=== PATIENT | female | born 1930 | race African-American/Black ===

== ENCOUNTER 2016-10-29 12:55 | Inpatient (IN) | payer MEDICARE, OTHER ==
--- NOTE | ~2016-10-29 | HP ---
History And Physical [place] [address] [facility] [place]. [address] NAME: KAYDEN MOSES : 32 STATUS : ADM IN [facility]#: [id number] AGE: 86 ADM/REG DATE : 10/29/16 MR#: [id number] REPORT SERV DATE: 10/29/16 DICTATED BY: DAMASO HOLLEY DATE: 10/29/16 REPORT STATUS : Draft TRANSCRIBED BY: MODGallito DATE: 10/29/16 DATE OF ADMISSION: 10/29/2016 REASON FOR ADMISSION: Shortness of breath. Sees Dr. Farrell for Cardiology needs. HOSPITAL COURSE: This is an 86-year-old female. She suffers from ischemic cardiomyopathy, last LVEF thought to be 40%. Has had a PCI in the past, 2005. Known history of type 2 insulin-dependent diabetes, gastritis, GI bleed, hypertension, gallstone pancreatitis, gout; surgical history of left nephrectomy, left knee arthroplasty, cholecystectomy, and hysterectomy. The patient comes in with increasing shortness of breath and lower extremity swelling. Took an extra Lasix last Wednesday. Past several day course of worsened symptoms. No PND, but positive orthopnea. Has a hiatal hernia, usually cannot lay flat. The patient denies any fevers or chills. No nausea, no vomiting, no diarrhea, no chest pain, no chest pressure, no chest heaviness. Positive shortness of breath. Nonproductive cough positivity. Comes in with bilateral alveolar infiltration on chest x-ray, possible pleural effusion on the left, costophrenic. REVIEW OF SYSTEMS: Done, see HPI, otherwise negative. PAST MEDICAL HISTORY: Paroxysmal atrial fibrillation, on sotalol. Does not appear to have any anticoagulation. The patient is on chronic home O2, unclear etiology. PAST SURGICAL HISTORY: See above. ALLERGIES: APPARENTLY SULFA, BUT YET SHE TAKES LASIX AT HOME, WHICH HAS SULFA COMPONENT; CODEINE. FAMILY HISTORY: Hypertension in at least one parent. SOCIAL HISTORY: Does not drink, do drugs, or do alcohol. Was around secondhand positive smoke exposure in the past. HOME MEDICATIONS: See MAR. Continue what is relevant. OBJECTIVE: VITAL SIGNS: Currently 173/97, 97.9 temp, 75 pulse, 18 respirations, 95% on 2 L. GENERAL: No acute distress. HEENT: PERRLA. No scleral icterus. CARDIOVASCULAR: Regular rate and rhythm, 1/6 systolic aortic murmur. History And Physical [address] [address] NAME: KAYDEN MOSES : 31 STATUS : ADM IN PAT#: [id number] AGE: 86 ADM/REG DATE : 10/29/16 MR#: [id number] REPORT SERV DATE: 10/29/16 DICTATED BY: DAMASO HOLLEY DATE: 10/29/16 REPORT STATUS : Draft TRANSCRIBED BY: CANDY DATE: 10/29/16 RESPIRATORY: Bibasilar crackles. Decreased breath sounds bibasilarly. ABDOMEN: Obese, nontender, nondistended. Positive bowel sounds. EXTREMITIES: 1+ pitting edema bilaterally. NEURO: A and O x4/4. GCS of 15. PSYCH: Mildly anxious. LABORATORY DATA: White count 6.1, hemoglobin 10.7, 219,000 platelets, 3.8 potassium, 24 bicarb, 0.99 creatinine, 23 BUN, 163 sugar, BNP 873, troponin 0.03. INR 1.3. Chest x-ray, see above. EKG has atrial fibrillation, PVCs noted. T-wave inversion aVL, AV, and lead 1. Needs a prior EKG to elucidate if it is persistent. We will get a repeat as a result and trend cardiac enzymes. Could be heart failure with hypoxic demand-related ischemia. This is new. ASSESSMENT AND PLAN: 1. Acute decompensated heart failure with ischemic cardiomyopathy, last LVEF thought to have been 40%. 2. Solitary kidney history. 3. Atrial fibrillation. 4. Debility. PLAN: We will go ahead and admit this patient to Dr. Garcia's service -[place]. We will go ahead and place on IV Bumex. Diuresis. Bilateral lower extremity ultrasound. Get a procal. Trend cardiac enzymes, specifically with MB fraction. Will need to be checked for prior EKG for possible persistence of lateral T-wave inversions. Placed on hydralazine p.r.n. 2 g sodium restricted diet, 1.5 L fluid restriction. Echo. If it is intractable, conservative management. Consider possible Cardiology consultation. All questions were answered. Took well over 60 minutes to do. Reference [employer] and CytRx. WST/MODL Damaso Holley DO / [id number] CC: Niki Randolph N.P.
--- NOTE | ~2016-10-29 | DS ---
Discharge Summary [facility] [address] [place]. [address] NAME: KAYDEN MOSES : 31 STATUS : DIS IN PAT#: [id number] AGE: 86 ADM/REG DATE : 10/29/16 MR#: [id number] REPORT SERV DATE: 11/05/16 DICTATED BY: PRO DAVIDSON DATE: 11/04/16 REPORT STATUS : Draft TRANSCRIBED BY: MODGallito DATE: 11/04/16 ADMISSION DATE: 10/29/2016 DISCHARGE DATE: 11/03/2016 DISCHARGE DIAGNOSES: Include: 1. Acute on chronic systolic heart failure with most recent ejection fraction of 60%, left ventricular hypertrophy. 2. Chronic atrial fibrillation, rate controlled only. No anticoagulation. 3. Bilateral pleural effusions. Chronic home O2 use 2 L. 4. Chronic kidney disease, stage III. Most recent creatinine 1.33. 5. Hypertension. 6. Diabetes type 2, most recent hemoglobin A1c 7.1. 7. History of a solitary right kidney. DISCHARGE MEDICATIONS: As follows: Allopurinol 100 mg at bedtime resuming 11/05/2016; aspirin 81 mg daily; Plavix 75 mg daily; vitamin D 4000 units p.o. Wednesday and Wednesday; Ferrex 150 mg p.o. at bedtime; Insulin Levemir 12 units at bedtime; multivitamin 1 tablet daily; Procardia XL 90 mg daily; Altace 2.5 mg daily; simvastatin 40 mg at bedtime; Betapace 80 mg twice a day; clonidine 0.2 mg twice a day; hydralazine 25 mg three times a day; Imdur 30 mg daily; Lasix 20 mg daily starting on 11/05/2016; Tylenol 1000 mg twice a day p.r.n.; Colace 100 mg daily p.r.n. for constipation. HISTORY OF PRESENT ILLNESS: An 86-year-old, female, known to the Hospitalist Service presented with shortness of breath. Please see the initial H and P of Dr. Haja Esparza as patient was admitted to the Hospitalist Service for further evaluation and treatment. Please also see the interim discharge summary of Jaylene Tenorio, nurse practitioner. CONTINUATION OF HOSPITAL COURSE: The patient of course was given aggressive diuresis during this admission and that made improvement both in her weight and symptoms. She was seen by the Heart failure Education Team. She underwent an echocardiogram. It did show an ejection fraction 60%, left ventricular hypertrophy, and some mild mitral insufficiency. She is able to transition back off her IV diuretics. She already has Home Health, Physical Therapy in place, and we will resume this through [facility] at discharge. She was felt safe for discharge home on 11/03/2016, lives with a daughter and has cane walker and bedside commode in the home. She has followups planned with her primary care in seven days and also Cardiology followup in two to three weeks on a 1500 mL fluid restriction, 24 hours, daily weights and low-sodium diet. Discussed at length with the patient at bedside. She is in agreement with this plan going forward. She will also be rechecking the BMP through primary care office at that followup. Please note greater 30 minutes spent on this discharge for medication teaching, followup planning, and further disposition. Discharge Summary [place] [id number] [facility] [place]. [address] NAME: KAYDEN MOSES : 32 STATUS : DIS IN PAT#: [id number] AGE: 86 ADM/REG DATE : 10/29/16 MR#: [id number] REPORT SERV DATE: 11/05/16 DICTATED BY: PRO DAVIDSON DATE: 11/04/16 REPORT STATUS : Draft TRANSCRIBED BY: CANDY DATE: 11/04/16 LORENZO/CANDY Pro Davidson NP / [id number] CC: Niki Ponce NZoila
--- NOTE | ~2016-10-29 | IDS ---
Interim Discharge Summary [facility] [address] [place]. [address] NAME: KAYDEN MOSES : 32 STATUS : ADM IN PAT#: [id number] AGE: 86 ADM/REG DATE : 10/29/16 MR#: [id number] REPORT SERV DATE: 11/02/16 DICTATED BY: DATE: REPORT STATUS : Draft TRANSCRIBED BY: MODL DATE: 11/02/16 ADMISSION DATE: 10/29/2016 DISCHARGE DATE: DIAGNOSES: Current interim discharge diagnosis list includes: 1. Acute on chronic congestive heart failure. 2. Hypertension. 3. Diabetes mellitus type 2. 4. Gout. 5. Chronic atrial fibrillation. 6. Anemia. 7. History of coronary artery disease. 8. History of cerebrovascular accident. 9. History of gastrointestinal bleed. 10.Bilateral pleural effusions. 11.Solitary kidney. HISTORY OF PRESENT ILLNESS: This is an 86-year-old, black female, who suffers from ischemic cardiomyopathy with her last ejection fraction of approximately 40%. The patient has had history of PCI in 2005. Please see H and P dictated on 10/29/2016 by Haja Esparza. Next, during this admission, the patient has continued to be in chronic atrial fibrillation. The patient is on home O2 at 2 L. PROCEDURES AND IMAGING: Initial chest x-ray on showed venous congestion with interstitial prominence in the lungs concerning for edema, as well as bibasilar atelectasis with probably small bilateral fluid. On 10/30/2016, the patient had bilateral venous Doppler on lower extremities that showed no DVT. Chest x-ray on showed upper lung hubbard clearing of congestive failure with marked cardiomegaly and a large bilateral pleural effusions. Next chest x-ray was on 11/02/2016, which showed [id number] bilateral pleural effusions, decreased since prior examination. Stable cardiac silhouette. The patient has been having slow diuresis only outputs between 400 to 600 mL with IV Bumex b.i.d. We have added Zaroxolyn today to give her an extra bump to see if she will be ready for discharge tomorrow. We are also getting a home PT evaluation to see if the patient would benefit from any possible therapy upon discharge. The patient does use cane to ambulate at home. The patient has been seen by the heart failure team and will also be having home health follow her for her heart failure. Due to her diuresis, we have had some problems with hypokalemia which is being replaced by electrolyte protocol, and currently is on scheduled potassium. Upon discharge, her diuretics will need to be readdressed and will probably need to have scheduled potassium discontinued. CURRENT LABORATORY DATA: BNP of 404 and on admission they were 873.2. Sodium is 143, potassium is 4.4, chloride is 104, BUN is 28, creatinine is 1.23, GFR is 46, glucose is 60, calcium is 8.3, Mag is 2.0, and phosphorus is 3.9. We have ordered BMP and Mag in the morning. The patient's Rubi has been discontinued. Interim Discharge Summary [address] [address] NAME: KAYDEN MOSES : 31 STATUS : ADM IN [facility]#: [id number] AGE: 86 ADM/REG DATE : 10/29/16 MR#: [id number] REPORT SERV DATE: 11/02/16 DICTATED BY: DATE: REPORT STATUS : Draft TRANSCRIBED BY: MODL DATE: 11/02/16 SLC/MODL Jaylene Tenorio NP / [id number] CC: MD Noemy Dela Cruz N.P.
[~2016-10-29 12:55] MED LIST: ACET500CAP PO; ADALAT CC90 MG PO; ALTA2.5 PO; AMARYL1 MG PO; APRES25 PO; ASA5GR PO; ASAEC PO; BETAPACE80 PO; CAT2 PO; CEFT5 PO; CENTRUM PO; CENTRUM TAB1 TAB PO; COZAAR100 MG PO; DIOV160 PO; DIOVAN320 MG PO; DRONED400 PO; DSS PO; EZFE 200200 MG PO; FERREX 150150 MG PO; HALF81 PO; IMDUR30 PO; L20 PO; L40 PO; LEVAQUIN750 MG PO; LEVEMFLXPN SC; LEVEMIR SC; LOP25 PO; LOP50 PO; MONOPRIL40 MG PO; MULTIPLE VIT PO; MULTIVITAMI1 PO; NATURA2 OP; NXL9 PO; PLAVIX PO; POLY IRON150 MG PO; SPIRO25 PO; VITAMIN D1000 UNI1 PO; VITAMIN D31000 UNIT PO; Z100 PO; ZOCOR40 PO
[2016-10-29 16:43] LABS: BASOPHILS 0.2 %; BASOPHILS ABSOLUTE 0.01 10/3/uL (0.0-0.16); EOSINOPHILS 0.5 %; EOSINOPHILS ABSOLUTE 0.03 10/3/uL (0.0-0.53); HEMOGLOBIN 10.7 g/dL (12.0-16.0); IMMATURE GRANULOCYTES 0.3 %; IMMATURE GRANULOCYTES ABSOLUTE 0.02 10/3/uL (0.0-0.11); LYMPHOCYTES 19.7 %; MEAN CORPUS HGB CONC 33.1 g/dL (32.0-36.0); MEAN CORPUSCULAR HEMOGLOB 30.4 pg (26.0-34.0); MEAN PLATELET VOLUME 9.8 fL (9.2-13.0); MONOCYTES 5.6 %; MONOCYTES ABSOLUTE 0.34 10/3/uL (0.21-1.20); NEUTROPHILS 73.7 %; PLATELET COUNT 219 10/3/uL (150-400); RBC DISTRIBUTION WIDTH 16.2 % (12.0-16.0); RED CELL COUNT 3.52 10/6/uL (4.0-5.6); WHITE BLOOD CELLS 6.1 10/3/uL (4.5-10.5)
[2016-10-29 16:44] LABS: HEMATOCRIT 32.3 % (36.0-48.0); MANUAL DIFF NO %; MEAN CORPUSCULAR VOLUME 91.8 fL (80-100)
[2016-10-29 16:50] LABS: INTERNATIONAL NORMAL RATI 1.3 UNITS (-); PARTIAL THROMBO TIME 28.7 SEC (22.5-37.2)
[2016-10-29 17:06] LABS: A/G RATIO 0.8 (0.7-1.9); ALBUMIN 2.9 G/DL (3.5-5.0); BUN (BLOOD UREA NITROGEN) 23 MG/DL (6-23); CALCIUM, SERUM 8.5 MG/DL (8.5-10.4); CHLORIDE, SERUM 110 MMOL/L (96-112); CO2 (CARBON DIOXIDE) 24 MMOL/L (24-34); CREATININE 0.99 MG/DL (0.55-1.02); GFR AFRICAN AMERICAN 60 ML/MIN (>=60); GFR NON AFRICAN AMERICAN 52 ML/MIN (>=60); GLOBULIN 3.5 G/DL (2.5-4.1); GLUCOSE, SERUM 163 MG/DL (60-99); POTASSIUM, SERUM 3.8 MMOL/L (3.5-5.3); SGOT(AST) 24 U/L (5-40); SGPT(ALT) 39 U/L (5-65); SODIUM, SERUM 143 MMOL/L (135-148); TOTAL BILIRUBIN 0.4 MG/DL (0-1.2); TOTAL PROTEIN 6.4 G/DL (6.0-8.5); TROPONIN I 0.03 NG/ML (<0.05)
[2016-10-29 17:07] LABS: ALKALINE PHOSPHATASE 109 U/L (45-117)
[2016-10-29 17:08] LABS: B NATRIURETIC PEPTIDE (BNP) 873.2 PG/ML (< 100.0)
[2016-10-29] MEDS ORDERED: ZOCOR40 PO (17:25)
[2016-10-29] MEDS ORDERED: ASAB PO (17:26)
[2016-10-29] MEDS ORDERED: MULTIVIT/MIN PO (17:26)
[2016-10-29] MEDS ORDERED: IMDUR30 PO (17:27)
[2016-10-29] MEDS ORDERED: VITAMIN D31000 UNIT PO (17:27)
[2016-10-29] MEDS ORDERED: APRES25 PO (17:27)
[2016-10-29] MEDS ORDERED: PLAVIX PO (17:29)
[2016-10-29] MEDS ORDERED: ALTA2.5 PO (17:29)
[2016-10-29] MEDS ORDERED: L20 PO (17:29)
[2016-10-29] MEDS ORDERED: CAT2 PO (17:29)
[2016-10-29] MEDS ORDERED: BETAPACE80 PO (17:30)
[2016-10-29] MEDS ORDERED: Z100 PO (17:30)
[2016-10-29] MEDS ORDERED: FERREX 150150 MG PO (17:31)
[2016-10-29] MEDS ORDERED: ACET500CAP PO (17:32)
[2016-10-29] MEDS ORDERED: DSS PO (17:33)
[2016-10-29] MEDS ORDERED: LEVEMFLXPN SC (17:33)
[2016-10-29 21:23] LABS: CPK 43 U/L (0-200); PHOSPHORUS, SERUM 3.2 MG/DL (2.5-4.5)
[2016-10-29 21:24] LABS: CK-MB 0.9 NG/ML
[2016-10-29 21:46] LABS: PROCALCITONIN 0.06 ng/mL (<0.5)
[2016-10-29 21:54] LABS: GLYCOHEMOGLOBIN (HbA1c) 7.1 % (4.7-6.1)
[2016-10-29 23:32] LABS: CK-MB 1.1 NG/ML; CPK 48 U/L (0-200); TROPONIN I 0.03 NG/ML (<0.05)
[2016-10-30 06:40] LABS: BASOPHILS 0.2 %; BASOPHILS ABSOLUTE 0.02 10/3/uL (0.0-0.16); EOSINOPHILS 0.7 %; EOSINOPHILS ABSOLUTE 0.06 10/3/uL (0.0-0.53); HEMATOCRIT 33.8 % (36.0-48.0); IMMATURE GRANULOCYTES 0.1 %; IMMATURE GRANULOCYTES ABSOLUTE 0.01 10/3/uL (0.0-0.11); LYMPHOCYTES ABSOLUTE 1.28 10/3/uL (0.67-4.30); MEAN CORPUS HGB CONC 32.5 g/dL (32.0-36.0); MEAN CORPUSCULAR HEMOGLOB 29.6 pg (26.0-34.0); MEAN CORPUSCULAR VOLUME 91.1 fL (80-100); MEAN PLATELET VOLUME 10.4 fL (9.2-13.0); MONOCYTES 6.5 %; MONOCYTES ABSOLUTE 0.52 10/3/uL (0.21-1.20); NEUTROPHILS 76.5 %; NEUTROPHILS ABSOLUTE 6.13 10/3/uL (2.02-8.40); PLATELET COUNT 249 10/3/uL (150-400); RBC DISTRIBUTION WIDTH 16.3 % (12.0-16.0); RED CELL COUNT 3.71 10/6/uL (4.0-5.6)
[2016-10-30 06:46] LABS: MANUAL DIFF NO %
[2016-10-30 06:47] LABS: BUN (BLOOD UREA NITROGEN) 21 MG/DL (6-23); CALCIUM, SERUM 8.7 MG/DL (8.5-10.4); CHLORIDE, SERUM 111 MMOL/L (96-112); CO2 (CARBON DIOXIDE) 25 MMOL/L (24-34); CREATININE 0.93 MG/DL (0.55-1.02); GFR AFRICAN AMERICAN 65 ML/MIN (>=60); GFR NON AFRICAN AMERICAN 56 ML/MIN (>=60); PHOSPHORUS, SERUM 3.2 MG/DL (2.5-4.5); POTASSIUM, SERUM 3.5 MMOL/L (3.5-5.3); SODIUM, SERUM 146 MMOL/L (135-148)
[2016-10-30 06:49] LABS: GLUCOSE, SERUM 96 MG/DL (60-99)
[2016-10-31 06:39] LABS: BUN (BLOOD UREA NITROGEN) 21 MG/DL (6-23); CALCIUM, SERUM 8.4 MG/DL (8.5-10.4); CHLORIDE, SERUM 108 MMOL/L (96-112); CO2 (CARBON DIOXIDE) 27 MMOL/L (24-34); GFR AFRICAN AMERICAN 59 ML/MIN (>=60); GFR NON AFRICAN AMERICAN 51 ML/MIN (>=60); GLUCOSE, SERUM 77 MG/DL (60-99); PHOSPHORUS, SERUM 2.7 MG/DL (2.5-4.5); POTASSIUM, SERUM 3.5 MMOL/L (3.5-5.3); SODIUM, SERUM 145 MMOL/L (135-148)
[2016-10-31 06:51] LABS: BASOPHILS 0.2 %; BASOPHILS ABSOLUTE 0.02 10/3/uL (0.0-0.16); EOSINOPHILS 0.7 %; EOSINOPHILS ABSOLUTE 0.06 10/3/uL (0.0-0.53); HEMATOCRIT 34.2 % (36.0-48.0); HEMOGLOBIN 11.1 g/dL (12.0-16.0); IMMATURE GRANULOCYTES 0.1 %; IMMATURE GRANULOCYTES ABSOLUTE 0.01 10/3/uL (0.0-0.11); LYMPHOCYTES 16.5 %; LYMPHOCYTES ABSOLUTE 1.34 10/3/uL (0.67-4.30); MEAN CORPUS HGB CONC 32.5 g/dL (32.0-36.0); MEAN CORPUSCULAR HEMOGLOB 29.4 pg (26.0-34.0); MEAN CORPUSCULAR VOLUME 90.5 fL (80-100); MEAN PLATELET VOLUME 10.7 fL (9.2-13.0); MONOCYTES 7.3 %; MONOCYTES ABSOLUTE 0.59 10/3/uL (0.21-1.20); NEUTROPHILS 75.2 %; NEUTROPHILS ABSOLUTE 6.08 10/3/uL (2.02-8.40); PLATELET COUNT 252 10/3/uL (150-400); RBC DISTRIBUTION WIDTH 16.5 % (12.0-16.0); RED CELL COUNT 3.78 10/6/uL (4.0-5.6); WHITE BLOOD CELLS 8.1 10/3/uL (4.5-10.5)
[2016-10-31 06:52] LABS: MANUAL DIFF NO %
[2016-11-01 06:22] LABS: BASOPHILS 0.3 %; BASOPHILS ABSOLUTE 0.02 10/3/uL (0.0-0.16); EOSINOPHILS 1.3 %; HEMATOCRIT 35.3 % (36.0-48.0); HEMOGLOBIN 11.4 g/dL (12.0-16.0); IMMATURE GRANULOCYTES 0.1 %; IMMATURE GRANULOCYTES ABSOLUTE 0.01 10/3/uL (0.0-0.11); LYMPHOCYTES 17.2 %; MEAN CORPUS HGB CONC 32.3 g/dL (32.0-36.0); MEAN CORPUSCULAR HEMOGLOB 29.4 pg (26.0-34.0); MEAN PLATELET VOLUME 10.8 fL (9.2-13.0); MONOCYTES 9.2 %; NEUTROPHILS 71.9 %; NEUTROPHILS ABSOLUTE 5.45 10/3/uL (2.02-8.40); PLATELET COUNT 267 10/3/uL (150-400); RBC DISTRIBUTION WIDTH 16.4 % (12.0-16.0); RED CELL COUNT 3.88 10/6/uL (4.0-5.6); WHITE BLOOD CELLS 7.6 10/3/uL (4.5-10.5)
[2016-11-01 06:23] LABS: MANUAL DIFF NO %
[2016-11-01 06:35] LABS: BUN (BLOOD UREA NITROGEN) 21 MG/DL (6-23); CALCIUM, SERUM 8.5 MG/DL (8.5-10.4); CHLORIDE, SERUM 105 MMOL/L (96-112); CO2 (CARBON DIOXIDE) 29 MMOL/L (24-34); CREATININE 1.01 MG/DL (0.55-1.02); GFR AFRICAN AMERICAN 59 ML/MIN (>=60); GFR NON AFRICAN AMERICAN 51 ML/MIN (>=60); GLUCOSE, SERUM 70 MG/DL (60-99); POTASSIUM, SERUM 3.5 MMOL/L (3.5-5.3); SODIUM, SERUM 144 MMOL/L (135-148)
[2016-11-01 08:08] LABS: ASCORBIC ACID (UR NOT ORDER) NEG (NEG); BILIRUBIN, URINE NEGATIVE (NEG); KETONE, URINE NEGATIVE (NEG); LEUKOCYTE ESTERASE(NOT OR TRACE (NEG); WBC (NOT ORDERED) (RFLEX) 3 (0-5)
[2016-11-02 07:02] LABS: BASOPHILS 0.3 %; BASOPHILS ABSOLUTE 0.02 10/3/uL (0.0-0.16); EOSINOPHILS 2.7 %; HEMATOCRIT 33.5 % (36.0-48.0); HEMOGLOBIN 10.8 g/dL (12.0-16.0); IMMATURE GRANULOCYTES 0.1 %; IMMATURE GRANULOCYTES ABSOLUTE 0.01 10/3/uL (0.0-0.11); LYMPHOCYTES 23.1 %; LYMPHOCYTES ABSOLUTE 1.71 10/3/uL (0.67-4.30); MEAN CORPUS HGB CONC 32.2 g/dL (32.0-36.0); MEAN CORPUSCULAR HEMOGLOB 29.7 pg (26.0-34.0); MEAN PLATELET VOLUME 10.5 fL (9.2-13.0); MONOCYTES 8.1 %; NEUTROPHILS 65.7 %; NEUTROPHILS ABSOLUTE 4.87 10/3/uL (2.02-8.40); PLATELET COUNT 243 10/3/uL (150-400); RBC DISTRIBUTION WIDTH 16.2 % (12.0-16.0); RED CELL COUNT 3.64 10/6/uL (4.0-5.6); WHITE BLOOD CELLS 7.4 10/3/uL (4.5-10.5)
[2016-11-02 07:03] LABS: MANUAL DIFF NO %
[2016-11-02 07:07] LABS: BUN (BLOOD UREA NITROGEN) 28 MG/DL (6-23); CALCIUM, SERUM 8.3 MG/DL (8.5-10.4); CHLORIDE, SERUM 104 MMOL/L (96-112); CO2 (CARBON DIOXIDE) 29 MMOL/L (24-34); CREATININE 1.23 MG/DL (0.55-1.02); GFR AFRICAN AMERICAN 46 ML/MIN (>=60); GFR NON AFRICAN AMERICAN 40 ML/MIN (>=60); GLUCOSE, SERUM 60 MG/DL (60-99); PHOSPHORUS, SERUM 3.9 MG/DL (2.5-4.5); POTASSIUM, SERUM 4.4 MMOL/L (3.5-5.3); SODIUM, SERUM 143 MMOL/L (135-148)
[2016-11-03 05:11] LABS: BASOPHILS 0.3 %; BASOPHILS ABSOLUTE 0.02 10/3/uL (0.0-0.16); EOSINOPHILS 3.5 %; EOSINOPHILS ABSOLUTE 0.21 10/3/uL (0.0-0.53); IMMATURE GRANULOCYTES 0.2 %; IMMATURE GRANULOCYTES ABSOLUTE 0.01 10/3/uL (0.0-0.11); LYMPHOCYTES 27.9 %; LYMPHOCYTES ABSOLUTE 1.68 10/3/uL (0.67-4.30); MANUAL DIFF NO %; MEAN CORPUS HGB CONC 32.4 g/dL (32.0-36.0); MEAN CORPUSCULAR HEMOGLOB 29.8 pg (26.0-34.0); MEAN CORPUSCULAR VOLUME 92.1 fL (80-100); MEAN PLATELET VOLUME 10.3 fL (9.2-13.0); MONOCYTES 8.1 %; MONOCYTES ABSOLUTE 0.49 10/3/uL (0.21-1.20); NEUTROPHILS ABSOLUTE 3.62 10/3/uL (2.02-8.40); PLATELET COUNT 244 10/3/uL (150-400); RBC DISTRIBUTION WIDTH 15.8 % (12.0-16.0); RED CELL COUNT 3.69 10/6/uL (4.0-5.6)
[2016-11-03 05:24] LABS: CALCIUM, SERUM 8.8 MG/DL (8.5-10.4); CHLORIDE, SERUM 103 MMOL/L (96-112); CO2 (CARBON DIOXIDE) 29 MMOL/L (24-34); CREATININE 1.33 MG/DL (0.55-1.02); GFR AFRICAN AMERICAN 42 ML/MIN (>=60); GFR NON AFRICAN AMERICAN 36 ML/MIN (>=60); PHOSPHORUS, SERUM 4.6 MG/DL (2.5-4.5); POTASSIUM, SERUM 4.8 MMOL/L (3.5-5.3); SODIUM, SERUM 141 MMOL/L (135-148)
[2016-11-03 05:25] LABS: BUN (BLOOD UREA NITROGEN) 34 MG/DL (6-23); GLUCOSE, SERUM 91 MG/DL (60-99)
[2017-03-01] MEDS ORDERED: IMDUR30 PO (20:11)
[2017-03-01] MEDS ORDERED: PLAVIX PO (20:11)
[2017-03-01] MEDS ORDERED: ZOCOR40 PO (20:12)
[2017-03-01] MEDS ORDERED: CAT2 PO (20:12)
[2017-03-01] MEDS ORDERED: ALTA2.5 PO (20:12)
[2017-03-01] MEDS ORDERED: ELIQUIS 5 MG TAB5 MG PO (20:13)
[2017-03-01] MEDS ORDERED: L20 PO (20:13)
[2017-03-01] MEDS ORDERED: APRES25 PO (20:14)
[2017-03-01] MEDS ORDERED: BETAPACE80 PO (20:14)
[2017-03-01] MEDS ORDERED: NXL9 PO (20:14)
[2017-03-01] MEDS ORDERED: CENTRUM PO (20:15)
[2017-03-01] MEDS ORDERED: VITAMIN D31000 UNIT PO (20:15)
[2017-03-01] MEDS ORDERED: KLOR-CON 1010 MEQ PO (20:16)
[2017-03-01] MEDS ORDERED: Z100 PO (20:16)
[2017-03-01] MEDS ORDERED: Z5 PO (20:16)
[2017-03-01] MEDS ORDERED: FERREX 150150 MG PO (20:17)
[2017-03-01] MEDS ORDERED: ASAB PO (20:17)
[2017-03-01] MEDS ORDERED: LEVEMFLXPN SC (20:18)
[2017-03-01] MEDS ORDERED: DSS PO (20:19)
[2017-03-01] MEDS ORDERED: ACET500CAP PO (20:19)
[2017-03-07] MEDS ORDERED: PROTONIX PO (12:44)
[2017-04-23] MEDS ORDERED: ACET500CAP PO (00:29)
[2017-04-23] MEDS ORDERED: Z5 PO (00:29)
[2017-04-23] MEDS ORDERED: IMDUR30 PO (00:29)
[2017-04-23] MEDS ORDERED: L20 PO (00:30)
[2017-04-23] MEDS ORDERED: BETAPACE80 PO (00:30)
[2017-04-23] MEDS ORDERED: CAT1 PO (00:30)
[2017-04-23] MEDS ORDERED: Z100 PO (00:30)
[2017-04-23] MEDS ORDERED: FERREX 150150 MG PO (00:31)
[2017-04-23] MEDS ORDERED: ELIQUIS 5 MG TAB5 MG PO (00:31)
[2017-04-23] MEDS ORDERED: PROTONIX PO (00:32)
[2017-04-23] MEDS ORDERED: CENTRUM PO (00:32)
[2017-04-23] MEDS ORDERED: VITAMIN D31000 UNIT PO (00:32)
[2017-04-23] MEDS ORDERED: NXL9 PO (00:32)
[2017-04-23] MEDS ORDERED: APRES25 PO (00:33)
[2017-04-23] MEDS ORDERED: ZOCOR40 PO (00:33)
[2017-04-23] MEDS ORDERED: LEVEMFLXPN SC (00:33)
[2017-04-23] MEDS ORDERED: DSS PO (00:34)
[2017-04-23] MEDS ORDERED: ASAB PO (00:35)
[2017-05-03] MEDS ORDERED: MAGOX4 PO (10:50)
[2017-05-03] MEDS ORDERED: NYS500UDL PO (10:52)
[2017-05-03] MEDS ORDERED: REM15 PO (10:53)
== END 2016-11-03 18:16 | disposition home health service (06) | DRG 291 ==
LOC: ER 12:55 → 6NO 19:43
PROVIDERS: Emergency Medicine; Hospitalist; Internal Medicine
DX: I13.0 Hypertensive heart and chronic kidney disease with heart failure and stage 1 through stage 4 chronic kidney disease, or unspecified chronic kidney disease (principal); I50.23 Acute on chronic systolic (congestive) heart failure; E11.22 Type 2 diabetes mellitus with diabetic chronic kidney disease; Z99.81 Dependence on supplemental oxygen; I48.2 Chronic atrial fibrillation; I25.5 Ischemic cardiomyopathy; N18.3 Chronic kidney disease, stage 3 (moderate); K59.00 Constipation, unspecified; E87.6 Hypokalemia; I34.0 Nonrheumatic mitral (valve) insufficiency; D64.9 Anemia, unspecified; M10.9 Gout, unspecified; Z86.73 Personal history of transient ischemic attack (TIA), and cerebral infarction without residual deficits; Z79.02 Long term (current) use of antithrombotics/antiplatelets; Z79.4 Long term (current) use of insulin; Z79.82 Long term (current) use of aspirin
CPT/HCPCS: 71010; 71020; 80048; 80053; 81001; 82550; 82553; 82962; 83036; 83735; 83880; 84100; 84145; 84443; 84484; 85025; 85610; 85730; 93005; 93306; 93970; 94640; 96374; 97110-GP; 97116-GP; 97161-GP; 99285; A9270-GY; G8978-CJ-GP; G8979-CI-GP; J0360; J1170; J1940; J2405

== ENCOUNTER 2017-02-07 11:36 | Emergency (ER) | payer MEDICARE, OTHER ==
[~2017-02-07 11:36] MED LIST changes: +ASAB PO; +MULTIVIT/MIN PO
[2017-02-07 16:07] LABS: BASOPHILS 0.3 %; BASOPHILS ABSOLUTE 0.02 10/3/uL (0.0-0.16); EOSINOPHILS 0.6 %; EOSINOPHILS ABSOLUTE 0.05 10/3/uL (0.0-0.53); ER CBC TAT 0 Hrs 05 Mins; HEMOGLOBIN 9.4 g/dL (12.0-16.0); IMMATURE GRANULOCYTES 0.1 %; IMMATURE GRANULOCYTES ABSOLUTE 0.01 10/3/uL (0.0-0.11); LYMPHOCYTES 17.9 %; LYMPHOCYTES ABSOLUTE 1.42 10/3/uL (0.67-4.30); MEAN CORPUS HGB CONC 31.8 g/dL (32.0-36.0); MEAN CORPUSCULAR HEMOGLOB 29.5 pg (26.0-34.0); MEAN CORPUSCULAR VOLUME 92.8 fL (80-100); MEAN PLATELET VOLUME 9.8 fL (9.2-13.0); MONOCYTES 5.3 %; MONOCYTES ABSOLUTE 0.42 10/3/uL (0.21-1.20); NEUTROPHILS 75.8 %; NEUTROPHILS ABSOLUTE 6.01 10/3/uL (2.02-8.40); PLATELET COUNT 283 10/3/uL (150-400); RBC DISTRIBUTION WIDTH 16.6 % (12.0-16.0); RED CELL COUNT 3.19 10/6/uL (4.0-5.6); WHITE BLOOD CELLS 7.9 10/3/uL (4.5-10.5)
[2017-02-07 16:09] LABS: HEMATOCRIT 29.6 % (36.0-48.0); MANUAL DIFF NO %
[2017-02-07 16:16] LABS: INTERNATIONAL NORMAL RATI 2.8 UNITS (-)
[2017-02-07 16:17] LABS: PROTIME (NOT ORD) 29.4 SEC (12.0-14.5)
[2017-02-07 16:24] LABS: CALCIUM, SERUM 8.7 MG/DL (8.5-10.4); CHEST PAIN PROFILE TAT 0 Hrs 22 Mins; CHLORIDE, SERUM 109 MMOL/L (96-112); GFR AFRICAN AMERICAN 53 ML/MIN (>=60); GFR NON AFRICAN AMERICAN 46 ML/MIN (>=60); SODIUM, SERUM 140 MMOL/L (135-148); TROPONIN I 0.03 NG/ML (<0.05)
[2017-02-07 16:25] LABS: BUN (BLOOD UREA NITROGEN) 28 MG/DL (6-23); CO2 (CARBON DIOXIDE) 24 MMOL/L (24-34); GLUCOSE, SERUM 228 MG/DL (60-99); POTASSIUM, SERUM 3.8 MMOL/L (3.5-5.3)
[2017-03-01] MEDS ORDERED: IMDUR30 PO (20:11)
[2017-03-01] MEDS ORDERED: PLAVIX PO (20:11)
[2017-03-01] MEDS ORDERED: ALTA2.5 PO (20:12)
[2017-03-01] MEDS ORDERED: ZOCOR40 PO (20:12)
[2017-03-01] MEDS ORDERED: CAT2 PO (20:12)
[2017-03-01] MEDS ORDERED: L20 PO (20:13)
[2017-03-01] MEDS ORDERED: ELIQUIS 5 MG TAB5 MG PO (20:13)
[2017-03-01] MEDS ORDERED: NXL9 PO (20:14)
[2017-03-01] MEDS ORDERED: APRES25 PO (20:14)
[2017-03-01] MEDS ORDERED: BETAPACE80 PO (20:14)
[2017-03-01] MEDS ORDERED: VITAMIN D31000 UNIT PO (20:15)
[2017-03-01] MEDS ORDERED: CENTRUM PO (20:15)
[2017-03-01] MEDS ORDERED: Z100 PO (20:16)
[2017-03-01] MEDS ORDERED: KLOR-CON 1010 MEQ PO (20:16)
[2017-03-01] MEDS ORDERED: Z5 PO (20:16)
[2017-03-01] MEDS ORDERED: FERREX 150150 MG PO (20:17)
[2017-03-01] MEDS ORDERED: ASAB PO (20:17)
[2017-03-01] MEDS ORDERED: LEVEMFLXPN SC (20:18)
[2017-03-01] MEDS ORDERED: DSS PO (20:19)
[2017-03-01] MEDS ORDERED: ACET500CAP PO (20:19)
[2017-03-07] MEDS ORDERED: PROTONIX PO (12:44)
[2017-04-23] MEDS ORDERED: ACET500CAP PO (00:29)
[2017-04-23] MEDS ORDERED: Z5 PO (00:29)
[2017-04-23] MEDS ORDERED: IMDUR30 PO (00:29)
[2017-04-23] MEDS ORDERED: L20 PO (00:30)
[2017-04-23] MEDS ORDERED: BETAPACE80 PO (00:30)
[2017-04-23] MEDS ORDERED: Z100 PO (00:30)
[2017-04-23] MEDS ORDERED: CAT1 PO (00:30)
[2017-04-23] MEDS ORDERED: FERREX 150150 MG PO (00:31)
[2017-04-23] MEDS ORDERED: ELIQUIS 5 MG TAB5 MG PO (00:31)
[2017-04-23] MEDS ORDERED: PROTONIX PO (00:32)
[2017-04-23] MEDS ORDERED: CENTRUM PO (00:32)
[2017-04-23] MEDS ORDERED: NXL9 PO (00:32)
[2017-04-23] MEDS ORDERED: VITAMIN D31000 UNIT PO (00:32)
[2017-04-23] MEDS ORDERED: ZOCOR40 PO (00:33)
[2017-04-23] MEDS ORDERED: LEVEMFLXPN SC (00:33)
[2017-04-23] MEDS ORDERED: APRES25 PO (00:33)
[2017-04-23] MEDS ORDERED: DSS PO (00:34)
[2017-04-23] MEDS ORDERED: ASAB PO (00:35)
[2017-05-03] MEDS ORDERED: MAGOX4 PO (10:50)
[2017-05-03] MEDS ORDERED: NYS500UDL PO (10:52)
[2017-05-03] MEDS ORDERED: REM15 PO (10:53)
== END 2017-02-07 18:13 | disposition home or self-care (01) ==
LOC: ER 11:36
PROVIDERS: Emergency Medicine
DX: I11.0 Hypertensive heart disease with heart failure (principal); I50.9 Heart failure, unspecified; E10.9 Type 1 diabetes mellitus without complications; Z88.2 Allergy status to sulfonamides; Z88.5 Allergy status to narcotic agent; Z91.09 Other allergy status, other than to drugs and biological substances; Z79.82 Long term (current) use of aspirin; Z79.4 Long term (current) use of insulin; Z79.899 Other long term (current) drug therapy
CPT/HCPCS: 71020; 80048; 83735; 83880; 84484; 85025; 85610; 85730; 93005; 96374; 96375; 99285